=== PATIENT | female | born 1930 | race Caucasian/White ===

== ENCOUNTER 2017-08-17 11:05 | Emergency (ER) | payer OTHER, MEDICARE ==
[~2017-08-17] VITALS: Ht 165.1 cm; Wt 68.0 kg
[2017-08-17 11:05] VITALS: BP 180/71; PULSE 65; RESP 16; TEMP 98.3; O2SAT 95
[~2017-08-17 11:05] MED LIST: CALC600T25 PO; FISH1000 PO; GABA300C5 PO; GLUCTAB6 PO; TOPR50TA PO
[2017-08-17] MEDS ORDERED: MONT10TA2 PO (11:12)
[2017-08-17] MEDS ORDERED: LISI40TA PO (11:12)
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
[2017-08-17] MEDS ORDERED: ORPHENADRINE INJ 60 MG/2 ML AMP IM ONE (13:15)
[2017-08-17] MEDS ORDERED: KETOROLAC TROMETHAMINE 30 MG/ML (IVP) VIAL IV PUSH ONE (13:15)
[2017-08-17] MEDS ORDERED: KETOROLAC TROMETHAMINE 60 MG/2 ML (IM) VIAL IM ONE (13:30)
== END 2017-08-17 13:35 | disposition home or self-care (01) ==
LOC: PHEFT 11:05
DX: M25.532 Pain in left wrist (principal); I10 Essential (primary) hypertension; V49.59XA Passenger injured in collision with other motor vehicles in traffic accident, initial encounter; Z79.01 Long term (current) use of anticoagulants
CPT/HCPCS: 70450; 72125; 72128; 73110; 96372; 99285; J2360